=== PATIENT | female | born 1955 | race Caucasian/White ===

== ENCOUNTER 2016-11-24 11:00 | Emergency (ER) | payer OTHER ==
[2016-11-24] MEDS ORDERED: DEXAMETHASONE 10 MG/ML VIAL PO STA (12:22)
[2016-11-24] MEDS ORDERED: DEXAMETHASONE 10 MG/ML VIAL ONE (12:46)
[2016-11-24] MEDS ORDERED: CHERRY SYRUP 10 ML UDC PO ONE (12:46)
--- NOTE | 2016-11-24 12:59 | ED Physician Documentation ---
History of Present Illness - Stated complaint Stated Complaint: SORE THROAT - Chief complaint Chief Complaint: Heent - Additonal information Additional information: hx from pt 61 female throat discomfort began yesterday progressed to excessive need to clear throat and then FB sensation though she did not choke etc now tender swollen left cervical nodes as well Review of Systems Constitutional: denies: Fever, Chills Throat: reports: Sore throat Cardiac: denies: Chest pain / pressure Respiratory: denies: Dyspnea Endocrine: denies: Easy bruising / bleeding Immunocompromised: denies: Immunocompromised PD PAST MEDICAL HISTORY - Past Medical History Past Medical History: No Cardiovascular: Hypertension Respiratory: None Neuro: None Endocrine/Autoimmune: None GI: None 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 : None HEENT: None Psych: None Musculoskeletal: None Derm: None - Past Surgical History Past Surgical History: Yes General: Appendectomy /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 MACHINE 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: Endometrial ablation - Present Medications Home Medications: Ambulatory Orders Medication Instructions Recorded Confirmed Azithromycin [Zithromax] 250 mg PO DAILY #6 tablet 11/24/16 predniSONE [Deltasone] 60 mg PO DAILY 3 Days 11/24/16 - Allergies Allergies/Adverse Reactions: Allergies Allergy/AdvReac Type Severity Reaction Status Date / Time Penicillins Allergy Unknown Verified 11/24/16 11:15 - Social History Does the pt smoke?: No Smoking Status: Never smoker PD ED PE NORMAL - Vitals Vital signs reviewed: Yes - HEENT HEENT: Moist mucous membranes, Pharynx benign (no uvula swelling or exudate) - Neck Neck: No: No adenopathy (left anterior TTP, pain with upper tracheal palpation but not lower no crepitus) - Cardiac Cardiac: RRR - Respiratory Respiratory: No respiratory distress, Clear bilaterally, Other (no stridor) Results - Vitals Vitals: Vital Signs - 24 hr 11/24/16 11:05 Temperature 36.9 C Heart Rate 71 Respiratory 18 Rate Blood Pressure 159/103 H O2 Saturation 97 Oxygen O2 Source Room air - Labs Labs: Laboratory Tests 11/24/16 12:50 Group A Strep Rapid Negative PD MEDICAL DECISION MAKING - ED course ED course: ST neck neg strep neg given decadron to dec swelling will tx as cervical adenitis with ab and steroids and PMD fup Departure - Departure Disposition: 01 Home, Self Care Clinical Impression: Cervical adenitis Condition: Good Instructions: ED Cervical Adenitis Abx Tx Prescriptions: predniSONE [Deltasone] 60 mg PO DAILY 3 Days Azithromycin [Zithromax] 250 mg PO DAILY #6 tablet Comments: The xray was fine - no foreign body, no abnormal swelling, no mass seen. You do have some markedly swollen lymph nodes on the left side of your neck The antibiotics and steroids should help decrease that swelling. Please follow up with your PMD for a recheck within a week. Return if worse Please follow up with your PMD about your blood pressure - it was high today
--- NOTE | 2016-11-24 13:11 | XRAY Preliminary Report ---
Exam: XR Neck Soft Tissue IMPRESSION: 1. No radiopaque foreign body. 2. Mild degenerative disk disease at C5-C6. [facility] SITE ID: [id number]
--- NOTE | 2016-11-24 13:14 | XRAY Report ---
EXAM: SOFT TISSUE NECK RADIOGRAPHY EXAM DATE: 11/24/2016 12:44 PM. CLINICAL HISTORY: Pain while swallowing. Foreign body sensation. Possible food bolus. COMPARISONS: None. TECHNIQUE: 2 views. FINDINGS: Soft Tissues: No prevertebral soft tissue swelling. The epiglottis and aryepiglottic folds are unrema rkable. No tonsillar or adenoidal enlargement. No radiopaque foreign body. Regional Skeleton: Mild disk height loss and endplate degenerative change at C5-C6. No acute bony abn ormality. Other: The visualized lung apices are clear. IMPRESSION: 1. No radiopaque foreign body. 2. Mild degenerative disk disease at C5-C6. [facility] Referring Provider Line: [phone] SITE ID: [id number]
[2016-11-24 13:16] LABS: RAPID STREP SCREEN REAGENT QC YELLOW (YELLOW)
[2016-11-24 13:50] VITALS: BP 159/92
== END 2016-11-24 14:00 | disposition home or self-care (01) ==
LOC: ED 11:00
DX: I88.9 Nonspecific lymphadenitis, unspecified (principal); I10 Essential (primary) hypertension
CPT/HCPCS: 70360; 87070; 87430; 99283; A9270

== ENCOUNTER 2016-11-27 09:31 | Emergency (ER) | payer OTHER ==
--- NOTE | 2016-11-27 10:19 | ED Physician Documentation ---
PD HPI ABD PAIN - Stated complaint Stated Complaint: ABD PX - Chief complaint Chief Complaint: Abd Pain - History obtained from History obtained from: Patient - History of Present Illness Timing - onset: Yesterday Timing - duration: Days (1) Timing - details: Gradual onset, Still present Quality: Cramping, Aching, Pain Location: LLQ Radiation: Lower back Associated symptoms: Nausea. No: Fever, Vomiting, Diarrhea, Constipation, Melena, Hematochezia Similar symptoms before: Diagnosis (diverticulitis) Recently seen: Not recently seen Review of Systems Constitutional: denies: Fever, Chills Nose: denies: Rhinorrhea / runny nose, Congestion Throat: denies: Sore throat Respiratory: denies: Cough GI: reports: Abdominal Pain, Nausea. 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 : None HEENT: None Psych: None Musculoskeletal: None Derm: None - Past Surgical History Past Surgical History: Yes General: Appendectomy /OIL EXPELLER: Endometrial ablation - Present Medications Home Medications: Ambulatory Orders Medication Instructions Recorded Confirmed Fluoxetine HCl [Prozac] 20 mg PO DAILY 11/27/16 11/27/16 Hyoscyamine Sulfate 0.125 mg PO Q4HR PRN 11/27/16 11/27/16 Metronidazole [Flagyl] 500 mg PO BID #20 tablet 11/27/16 Oxycodone HCl/Acetaminophen 1 each PO Q6H PRN #20 tablet 11/27/16 [Percocet 5-325 mg Tablet] Promethazine [Phenergan] 25 mg PO Q6H PRN #20 tab 11/27/16 Sulfamethox/Trimeth 800/160 1 each PO BID #20 tablet 11/27/16 [Bactrim Ds 800/160] - Allergies Allergies/Adverse Reactions: Allergies Allergy/AdvReac Type Severity Reaction Status Date / Time Penicillins Allergy Unknown Verified 11/24/16 11:15 - Social History Does the pt smoke?: No Smoking Status: Never smoker PD ED PE NORMAL - Vitals Vital signs reviewed: Yes - General General: Alert and oriented X 3, Well developed/nourished - HEENT HEENT: Moist mucous membranes, Pharynx benign - Neck Neck: Supple, no meningeal sign, No adenopathy - Cardiac Cardiac: RRR, No murmur - Respiratory Respiratory: Clear bilaterally - Abdomen Abdomen: Normal bowel sounds, Soft, Non distended, No organomegaly, Other ( tender left lower abdomen with some local rebound) - Female Female : Deferred - Rectal Rectal: Deferred - Back Back: No CVA TTP, No spinal TTP - Derm Derm: Normal color, Warm and dry Results - Vitals Vitals: Oxygen O2 Source Room air - Labs Labs: Microbiology 11/27/16 09:50 Urine Culture - Final Urine,Catheterized Laboratory Tests 11/27/16 11/27/16 11/27/16 09:50 11:15 11:15 WBC 8.9 RBC 4.32 Hgb 13.7 Hct 39.9 MCV 92.4 MCH 31.8 H MCHC 34.4 RDW 13.1 Plt Count 176 MPV 8.2 Neut # 6.9 H Lymph # 1.4 L [place] # 0.6 Eos # 0.0 Baso # 0.0 Absolute Nucleated RBC 0.00 Nucleated RBCs 0.0 Sodium 141 Potassium 3.6 Chloride 105 Carbon Dioxide 28 Anion Gap 8.0 BUN 18 Creatinine 0.7 Estimated GFR (MDRD) 85 L Glucose 120 H Calcium 9.2 Total Bilirubin 0.8 AST 19 ALT 25 Alkaline Phosphatase 51 Total Protein 6.9 Albumin 4.0 Globulin 2.9 Albumin/Globulin Ratio 1.4 Lipase 15 L Urine Color DARK YELLOW Urine Clarity HAZY Urine pH 5.5 Ur Specific [place] 1.025 Urine Protein TRACE Urine Glucose (UA) NEGATIVE Urine Ketones NEGATIVE Urine Occult Blood NEGATIVE Urine Nitrite NEGATIVE Urine Bilirubin NEGATIVE Urine Urobilinogen 0.2 (NORMAL) Ur Leukocyte Esterase SMALL H Urine RBC 0-5 Urine WBC 6-10 H Ur Squamous Epith Cells FEW Squamous Urine Bacteria Moderate H Ur Microscopic Review INDICATED Urine Culture Comments INDICATED - Rads (name of study) abd CT Radiology: Prelim report reviewed (local colitis, without abscess nor perforation) PD MEDICAL DECISION MAKING - ED course Complexity details: reviewed results (area of focal colitis, no signs of abscess /perforation. ), re-evaluated patient (improved with IV meds. ), considered differential (likely diverticulitis but she says is more abrupt and painful than prior episodes, so did CT to ensure not complicated. ), d/w patient Departure - Departure Disposition: 01 Home, Self Care Clinical Impression: Diverticulitis of gastrointestinal tract Abdominal pain Qualifiers: Abdominal location: lower abdomen, unspecified Qualified Code(s): R10.30 - Lower abdominal pain, unspecified Condition: Stable Record reviewed to determine appropriate education?: Yes Instructions: ED Diverticulitis Prescriptions: Sulfamethox/Trimeth 800/160 [Bactrim Ds 800/160] 1 each PO BID #20 tablet Metronidazole [Flagyl] 500 mg PO BID #20 tablet Oxycodone HCl/Acetaminophen [Percocet 5-325 mg Tablet] 1 each PO Q6H PRN #20 tablet PRN Reason: Pain Promethazine [Phenergan] 25 mg PO Q6H PRN #20 tab PRN Reason: Nausea / Vomiting Comments: Drink lots of fluids. Low fiber diet for a week. Metronidazole and Bactrim twice daily for 10 days. Tylenol or Ibuprofen/naproxen for pains; add Oxycodone as needed for pains. Promethazine as needed for nausea. Follow up with PMD next week for recheck, call for appt. Return sooner if worsening. Discharge Date/Time: 11/27/16 15:00
[2016-11-27 10:38] LABS: BILIRUBIN,URINE NEGATIVE (NEGATIVE); PH,URINE 5.5 PH (5.0-7.5)
[2016-11-27 10:40] LABS: UA w/ MICROSCOPIC CHARGE YES
[2016-11-27 10:47] LABS: UR CULTURE IF IND INDICATED
[2016-11-27] MEDS ORDERED: ONDANSETRON 4 MG/2 ML VIAL IVP STA ×2 (10:51→12:50)
[2016-11-27] MEDS ORDERED: KETOROLAC 60 MG/2 ML VIAL IVP STA (10:51)
[2016-11-27] MEDS ORDERED: HYDROmorphone 1 MG/ML SYRINGE IVP STA ×3 (10:51→12:50)
[2016-11-27] MEDS ORDERED: SODIUM CHLORIDE 0.9% 1,000 ML IV ONE (10:51)
[2016-11-27] MEDS ORDERED: cefTRIAXone 1 GM in SODIUM CHLORIDE 0.9% MINIBAG 100 ML IV STA (10:52)
[2016-11-27] MEDS ORDERED: cefTRIAXone 1 GM VIAL ONE (10:55)
[2016-11-27] MEDS ORDERED: ONDANSETRON 4 MG/2 ML VIAL ONE ×2 (10:55→12:51)
[2016-11-27] MEDS ORDERED: KETOROLAC 30 MG/ML VIAL ONE (10:55)
[2016-11-27] MEDS ORDERED: HYDROmorphone 1 MG/ML SYRINGE ONE ×2 (10:55→12:51)
[2016-11-27 11:26] LABS: BASOPHILS % (AUTO) 0.2 %; HCT - HEMATOCRIT 39.9 % (37.0-47.0); HGB - HEMOGLOBIN 13.7 g/dL (12.0-16.0); LYMPHOCYTES # (AUTO) 1.4 10^3/uL (1.5-3.5); LYMPHOCYTES % (AUTO) 15.2 %; MEAN CORPUSCULAR HEMOGLOBIN 31.8 pg (27.0-31.0); MEAN CORPUSCULAR HGB CONC 34.4 g/dL (32.0-36.0); MEAN CORPUSCULAR VOLUME 92.4 fL (81.0-99.0); MEAN PLATELET VOLUME 8.2 fL (7.9-10.8); MONOCYTES # (AUTO) 0.6 10^3/uL (0.0-1.0); NEUTROPHILS # (AUTO) 6.9 10^3/uL (1.5-6.6); NEUTROPHILS % (AUTO) 77.6 %; RED BLOOD COUNT 4.32 10^6/uL (4.20-5.40); RED CELL DISTRIBUTION WIDTH 13.1 % (12.0-15.0); UNCORRECTED WHITE BLOOD COUNT 8.9 x10^3/uL; WHITE BLOOD COUNT 8.9 x10^3/uL (4.8-10.8)
[2016-11-27 11:39] LABS: ALBUMIN/GLOBULIN RATIO 1.4 (1.0-2.2); BILIRUBIN,TOTAL 0.8 mg/dL (0.2-1.0); CALCIUM 9.2 mg/dL (8.5-10.3); CREATININE 0.7 mg/dL (0.4-1.0); POTASSIUM 3.6 mmol/L (3.5-5.0); TOTAL PROTEIN 6.9 g/dL (6.7-8.2)
[2016-11-27] MEDS ORDERED: IOPAMIDOL-300 100 ML VIAL IVP ONE (12:11)
[2016-11-27] MEDS ORDERED: metroNIDAZOLE 500 MG/100 ML 100 ML IV ONE (12:27)
[2016-11-27] MEDS ORDERED: metroNIDAZOLE 500 MG/100 ML 100 ML ONE (12:51)
--- NOTE | 2016-11-27 12:57 | CT Preliminary Report ---
Exam: CT Abdomen/Pelvis W/ IMPRESSION: 1. Moderate diverticulosis. 2. Colon findings of colitis, infectious versus noninfectious. The extent of disease is more than usu ally seen in diverticulitis. [facility] SITE ID: [id number]
--- NOTE | 2016-11-27 12:59 | CT Report ---
EXAM: CT ABDOMEN AND PELVIS EXAM DATE: 11/27/2016 12:14 PM. CLINICAL HISTORY: Lower left abd pain. COMPARISONS: None. TECHNIQUE: Routine helical CT imaging was performed through the abdomen and pelvis. IV contrast: 100 cc Isovue-300. Enteric contrast: No. Reconstructions: Coronal and sagittal. In accordance with CT protocol optimization, one or more of the following dose reduction techniques w ere utilized for this exam: automated exposure control, adjustment of mA and/or KV based on patient s ize, or use of iterative reconstructive technique. FINDINGS: Lung Bases: Unremarkable. Liver: Normal. No masses. Gallbladder/Bile Ducts: Unremarkable. Spleen: Normal. Small accessory spleen. Pancreas: Normal. Adrenal Glands: Normal. Kidneys: Normal. No masses or hydronephrosis. Peritoneal Cavity/Bowel: Moderate colonic diverticulosis. Diffuse bowel wall thickening as much as 8 or 9 mm in the transverse and descending colon extending to the sigmoid, but sparing ascending colon and small bowel. Minimal haziness of adjacent fat. No free fluid, free air, or lymphadenopathy. No trent wel dilation. The appendix is well visualized and normal. Pelvic Organs: Normal. The bladder and visualized pelvic organs are within normal limits. Vasculature: No aneurysms or other significant abnormality. Bones: No significant abnormality. Other: None. IMPRESSION: 1. Moderate diverticulosis. 2. Colon findings of colitis, infectious versus noninfectious. The extent of disease is more than usu ally seen in diverticulitis. [facility] Referring Provider Line: [phone] SITE ID: [id number]
[2016-11-27] MEDS ORDERED: METOCLOPRAMIDE 10 MG/2 ML VIAL IVP STA (14:29)
[2016-11-27] MEDS ORDERED: METOCLOPRAMIDE 10 MG/2 ML VIAL IVP ONE (14:37)
[2016-11-27 15:00] VITALS: BP 112/74
== END 2016-11-27 15:00 | disposition home or self-care (01) ==
LOC: ED 09:31
DX: K57.32 Diverticulitis of large intestine without perforation or abscess without bleeding (principal); R10.32 Left lower quadrant pain; I10 Essential (primary) hypertension
CPT/HCPCS: 36415; 74177; 80053; 81001; 83690; 85025; 87086; 96374; 96375; 96376; 99283; 99284; J1170; Q9967; 81003

== ENCOUNTER 2018-11-01 01:01 | Emergency (ER) | payer OTHER ==
--- NOTE | 2018-11-01 01:12 | ED Physician Documentation ---
PD HPI ABD PAIN - Stated complaint Stated Complaint: ABD PX - Chief complaint Chief Complaint: Abd Pain - History obtained from History obtained from: Patient - History of Present Illness Timing - onset: How many days ago (about 10) Timing - duration: Days (about 10 days of some mid to lower abd discomfort and gassiness, cramps at times. Pain more consistent the past few days and increased more this evening.) Timing - details: Gradual onset, Still present, Waxing and waning Quality: Cramping, Aching (for a week or so, with regular abd pain for past several days. Increased today to LLQ area.) Location: Periumbilical, LLQ Improved by: BM. No: Eating Worsened by: No: Eating Associated symptoms: Constipation (firm stools the past week or so.). No: Fever, Nausea, Vomiting, Diarrhea, Melena, Hematochezia Similar symptoms before: Has not had sx before (Has had diverticulitis in the past, with pain left abdomen and more abruptly hurting. This has been prolonged and undulating, just the past day or so worsening.) Review of Systems Constitutional: denies: Fever, Chills, Myalgias Nose: denies: Rhinorrhea / runny nose, Congestion Throat: denies: Sore throat Cardiac: denies: Chest pain / pressure Respiratory: denies: Cough GI: reports: Abdominal Pain, Constipation. 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 - Present Medications Home Medications: Ambulatory Orders Medication Instructions Recorded Confirmed Fluoxetine HCl [Prozac] 20 mg PO DAILY 11/27/16 11/27/16 Hyoscyamine Sulfate 0.125 mg PO Q4HR PRN 11/27/16 11/27/16 Metronidazole [Flagyl] 500 mg PO BID #20 tablet 11/27/16 Oxycodone HCl/Acetaminophen 1 each PO Q6H PRN #20 tablet 11/27/16 [Percocet 5-325 mg Tablet] Promethazine [Phenergan] 25 mg PO Q6H PRN #20 tab 11/27/16 Sulfamethox/Trimeth 800/160 1 each PO BID #20 tablet 11/27/16 [Bactrim Ds 800/160] Amox/Clav 875/125 [Augmentin] 1 each PO Q12H #20 tablet 11/01/18 Naproxen 500 mg PO BID #20 tablet 11/01/18 - Allergies Allergies/Adverse Reactions: Allergies Allergy/AdvReac Type Severity Reaction Status Date / Time Penicillins Allergy Unknown Verified 11/24/16 11:15 - Social History Does the pt smoke?: No Smoking Status: Never smoker PD ED PE NORMAL - Vitals Vital signs reviewed: Yes - General General: Alert and oriented X 3, No acute distress, Well developed/nourished - HEENT HEENT: Pharynx benign - Neck Neck: Supple, no meningeal sign, No adenopathy - Cardiac Cardiac: RRR, No murmur - Respiratory Respiratory: Clear bilaterally - Abdomen Abdomen: Normal bowel sounds, Soft, Non distended, No organomegaly, Other (tender LLQ area with some guarding. No percussion nor rebound tenderness. ) - Female Female : Deferred - Rectal Rectal: Deferred - Back Back: No CVA TTP - Derm Derm: Normal color, Warm and dry, No rash - Neuro Neuro: Alert and oriented X 3, No motor deficit, Normal speech Results - Vitals Vitals: Vital Signs - 24 hr 11/01/18 11/01/18 01:05 01:36 Temperature 37.1 C Heart Rate 59 L 66 Respiratory 18 14 Rate Blood Pressure 172/95 H 143/83 H O2 Saturation 97 97 Oxygen O2 Source Room air - Labs Labs: Laboratory Tests 11/01/18 11/01/18 11/01/18 01:25 01:25 01:25 WBC 7.7 RBC 3.89 L Hgb 12.3 Hct 36.6 L MCV 94.2 MCH 31.6 H MCHC 33.6 RDW 12.0 Plt Count 201 MPV 8.4 Neut # (Auto) 5.4 Lymph # (Auto) 1.5 [place] # (Auto) 0.7 Eos # (Auto) 0.1 Baso # (Auto) 0.0 Absolute Nucleated RBC 0.00 Nucleated RBC % 0.0 Sodium 138 Potassium 3.7 Chloride 99 L Carbon Dioxide 26 Anion Gap 13.0 BUN 11 Creatinine 0.8 Estimated GFR (MDRD) 73 L Glucose 108 H Calcium 9.2 Total Bilirubin 0.6 AST 22 ALT 25 Alkaline Phosphatase 58 Total Protein 7.6 Albumin 4.0 Globulin 3.6 Albumin/Globulin Ratio 1.1 Lipase 26 Urine Color YELLOW Urine Clarity CLEAR Urine pH 6.0 Ur Specific [place] <=1.005 Urine Protein NEGATIVE Urine Glucose (UA) NEGATIVE Urine Ketones NEGATIVE Urine Occult Blood TRACE-INTA Urine Nitrite NEGATIVE Urine Bilirubin NEGATIVE Urine Urobilinogen 0.2 (NORMAL) Ur Leukocyte Esterase NEGATIVE Ur Microscopic Review NOT INDICATED Urine Culture Comments NOT INDICATED - Rads (name of study) abdCT Radiology: Prelim report reviewed (moderate sigmoid diverticulitis without abscess nor perforation. ), See rad report PD MEDICAL DECISION MAKING - ED course Complexity details: re-evaluated patient (improved with just Toradol. Discussed abx and she is going on trip with to [place] in 5 days, and would prefer to be able to have alcohol. She says her PCN allergy is that it gave her a yeast infection. So she is okay if we use Augmentin for her diverticulitis. ), considered differential, d/w patient Departure - Departure Disposition: 01 Home, Self Care Clinical Impression: Sigmoid diverticulitis Condition: Stable Record reviewed to determine appropriate education?: Yes Instructions: ED Diverticulitis Prescriptions: Amox/Clav 875/125 [Augmentin] 1 each PO Q12H #20 tablet Naproxen 500 mg PO BID #20 tablet Comments: Stay well-hydrated. Use stool softener such as MiraLAX daily for the next several days to week. Naproxen anti-inflammatory twice daily with food. Augmentin antibiotic twice daily for the infection. Use some probiotic foods and supplements to mitigate the side effects of the antibiotics. Recheck if not improving well over the next several days. Add Tylenol if needed for pain.
[2018-11-01] MEDS ORDERED: SODIUM CHLORIDE 0.9% 1,000 ML IV ONE (01:48)
[2018-11-01] MEDS ORDERED: KETOROLAC 15 MG/ML VIAL IVP STA (01:48)
[2018-11-01 01:56] LABS: BASOPHILS % (AUTO) 0.4 %; EOSINOPHILS # (AUTO) 0.1 10^3/uL (0.0-0.7); EOSINOPHILS % (AUTO) 1.8 %; HGB - HEMOGLOBIN 12.3 g/dL (12.0-16.0); LYMPHOCYTES # (AUTO) 1.5 10^3/uL (1.5-3.5); LYMPHOCYTES % (AUTO) 19.5 %; MEAN CORPUSCULAR HEMOGLOBIN 31.6 pg (27.0-31.0); MEAN CORPUSCULAR HGB CONC 33.6 g/dL (32.0-36.0); MEAN CORPUSCULAR VOLUME 94.2 fL (81.0-99.0); MEAN PLATELET VOLUME 8.4 fL (7.9-10.8); MONOCYTES # (AUTO) 0.7 10^3/uL (0.0-1.0); MONOCYTES % (AUTO) 8.6 %; NEUTROPHILS # (AUTO) 5.4 10^3/uL (1.5-6.6); NEUTROPHILS % (AUTO) 69.7 %; PLT - PLATELET COUNT 201 10^3/uL (130-450); RED BLOOD COUNT 3.89 10^6/uL (4.20-5.40); WHITE BLOOD COUNT 7.7 x10^3/uL (4.8-10.8)
[2018-11-01 02:06] LABS: ALBUMIN/GLOBULIN RATIO 1.1 (1.0-2.2); BILIRUBIN,TOTAL 0.6 mg/dL (0.2-1.0); CALCIUM 9.2 mg/dL (8.5-10.3); CREATININE 0.8 mg/dL (0.4-1.0); TOTAL PROTEIN 7.6 g/dL (6.7-8.2)
[2018-11-01] MEDS ORDERED: IOVERSOL 320 100 ML VIAL IVP ONE ×2 (02:27→03:03)
[2018-11-01 03:15] LABS: BILIRUBIN,URINE NEGATIVE (NEGATIVE); GLUCOSE, URINE (UA) NEGATIVE (NEGATIVE); KETONES,URINE (UA) NEGATIVE (NEGATIVE); LEUKOCYTE ESTERASE, URINE NEGATIVE (NEGATIVE); NITRITE,URINE NEGATIVE (NEGATIVE); OCCULT BLOOD,URINE TRACE-INTA (NEGATIVE); PROTEIN,URINE NEGATIVE (NEGATIVE); UROBILINOGEN,URINE 0.2 (NORMAL) E.U./dL (NORMAL)
[2018-11-01 03:16] LABS: CLARITY,URINE CLEAR (CLEAR)
--- NOTE | 2018-11-01 03:29 | CT Report ---
Reason: left abd pain for days, increasing Procedure Date: 11/01/2018 Accession Number: [id number] / [id number] Procedure: CT - Abdomen/Pelvis W CPT Code: FULL RESULT: EXAM: CT ABDOMEN AND PELVIS EXAM DATE: 11/01/2018 03:05 AM. CLINICAL HISTORY: Left abdominal pain for days, increasing. COMPARISONS: ABDOMEN/PELVIS W/ 11/27/2016 11:59 AM. TECHNIQUE: Routine helical CT imaging was performed through the abdomen and pelvis. IV contrast: 100 mL Optiray 320. Enteric contrast: No. Reconstructions: Coronal and sagittal. In accordance with CT protocol optimization, one or more of the following dose reduction techniques were utilized for this exam: automated exposure control, adjustment of mA and/or KV based on patient size, or use of iterative reconstructive technique. FINDINGS: ABDOMEN: Liver: Small low-density abnormality within the central portion of the liver is noted, within segment-4A/B. This may represent a hepatic cyst. It is similar to the prior study. Stomach/Distal Esophagus: No significant abnormality. Gallbladder: No significant abnormality. Bile Ducts: No significant abnormality. Pancreas: No significant abnormality. Spleen: No significant abnormality. Kidneys: No suspicious solid appearing lesion. No hydronephrosis. Adrenals: No significant abnormality. Bowel: Wall thickening as well as moderate inflammatory change noted around the sigmoid colon. There is moderate sigmoid diverticulosis. No pericolonic fluid collection demonstrated. There is no evidence of small bowel obstruction. Moderate descending colonic diverticulosis is present. Appendix: Normal. Lymph Nodes: No pathologically enlarged nodes. Vasculature: Normal caliber aorta. Fluid: No significant free fluid. Abdominal Wall: No significant abnormality. Other: No significant abnormality. PELVIS: Uterus and Ovaries: No significant abnormality. Bladder: No significant abnormality. Lymph Nodes: No pathologically enlarged nodes. Fluid: No significant free fluid. Other: None. BONES: No suspicious bony lesions. LOWER CHEST: No significant consolidation or effusion. IMPRESSION: 1. Moderate severity sigmoid diverticulitis. No definite evidence of a pericolonic abscess. 2. No bowel obstruction is demonstrated. Appendix is normal. [facility]
[2018-11-01] MEDS ORDERED: AMPICILLIN/SULBACTAM 1.5 GM in SODIUM CHLORIDE 0.9% MINIBAG 100 ML IV STA (03:47)
[2018-11-01 04:44] VITALS: BP 135/81
== END 2018-11-01 04:55 | disposition home or self-care (01) ==
LOC: ED 01:01
DX: K57.32 Diverticulitis of large intestine without perforation or abscess without bleeding (principal); I10 Essential (primary) hypertension
CPT/HCPCS: 36415; 74177; 80053; 81003; 83690; 85025; 96361; 96365; 96375; 99284; Q9967; 81001; 87086